=== PATIENT | female | born 1970 | race American Indian/Alaskan Native ===

== ENCOUNTER 2017-03-27 12:53 | Emergency (ER) | payer MEDICARE | END 2017-03-27 19:00 | disposition left against medical advice (07) | LOC: ED 12:53 | DX: R56.9 Unspecified convulsions (principal); Z53.21 Procedure and treatment not carried out due to patient leaving prior to being seen by health care provider ==

== ENCOUNTER 2017-08-27 16:41 | Emergency (ER) | payer MEDICARE ==
[2017-08-27 16:51] VITALS: BP 138/62
--- NOTE | 2017-08-27 19:12 | Emergency Department Report ---
ED Lower Extremity HPI - General Chief Complaint: Extremity Problem,Nontraumatic Stated Complaint: LEG PAIN Time Seen by Provider: 08/27/17 18:54 Source: patient, EMS Mode of arrival: Wheelchair Limitations: No Limitations - History of Present Illness Initial Comments: Pt reports she had surgery on her knee last year and for the past week it has been locking up on her. Denies new trauma. MD Complaint: knee injury -: Gradual, week(s) (1) Injury: Knee: Right Type of Injury: unknown Place: home Severity: mild Improves With: nothing Worsens With: movement Associated Symptoms: swelling, ambulatory. denies: tingling - Related Data Previous Rx's Medication Instructions Recorded Last Taken Type Naproxen [Naprosyn] 500 mg PO BID #20 tablet 08/27/17 Unknown Rx Allergies Allergy/AdvReac Type Severity Reaction Status Date / Time No Known Allergies Allergy Unverified 06/25/14 18:40 ED Review of Systems ROS: Stated complaint: LEG PAIN Other details as noted in HPI Comment: All other systems reviewed and negative Constitutional: denies: chills, fever Eyes: denies: eye pain, eye discharge, vision change ENT: denies: ear pain, throat pain Respiratory: denies: cough, shortness of breath, wheezing Cardiovascular: denies: chest pain, palpitations Endocrine: no symptoms reported Gastrointestinal: denies: abdominal pain, nausea, diarrhea Genitourinary: denies: urgency, dysuria, discharge Musculoskeletal: joint swelling. 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) - Surgical History Past Surgical History?: No - Social History Smoking Status: Current Every Day Smoker Substance Use Type: None - Medications Home Medications: Home Medications Medication Instructions Recorded Confirmed Last Taken Type Naproxen [Naprosyn] 500 mg PO BID #20 tablet 08/27/17 Unknown Rx ED Physical Exam - General Limitations: No Limitations General appearance: alert, in no apparent distress - Head Head exam: Present: atraumatic, normocephalic - Eye Eye exam: Present: normal appearance - ENT ENT exam: Present: mucous membranes moist - Neck Neck exam: Present: normal inspection - Respiratory Respiratory exam: Present: normal lung sounds bilaterally. Absent: respiratory distress - Cardiovascular Cardiovascular Exam: Present: regular rate, normal rhythm. Absent: systolic murmur, diastolic murmur, rubs, gallop - GI/Abdominal GI/Abdominal exam: Present: soft, normal bowel sounds - Extremities Exam Extremities exam: Present: other (FROM R knee, mild swelling, nontender. Hip/ ankle normal. CMS intact. ) - Back Exam Back exam: Present: normal inspection - Neurological Exam Neurological exam: Present: alert, oriented X3 - Psychiatric Psychiatric exam: Present: normal affect, normal mood - Skin Skin exam: Present: warm, dry, intact, normal color. Absent: rash ED Course Vital Signs 08/27/17 16:48 Temperature 98 F Pulse Rate 103 H Respiratory 16 Rate Blood Pressure 138/62 O2 Sat by Pulse 98 Oximetry - Reevaluation(s) Reevaluation #1: 08/27/17 20:14 Pt stable for d/c. ED Lower Extremity MDM - Radiology Data Radiology results: report reviewed chronic changes - Medical Decision Making Pt presents with knee pain x 1 week, xray shows arthritis, evidence of surgery. Will place in immobilizer and refer to ortho. - Differential Diagnosis arthritis, strain/sprain Critical care attestation.: If time is entered above; I have spent that time in minutes in the direct care of this critically ill patient, excluding procedure time. ED Disposition Clinical Impression: Knee pain, acute Qualifiers: Laterality: right Qualified Code(s): M25.561 - Pain in right knee Disposition: DC-01 TO HOME OR SELFCARE Is pt being admited?: No Condition: Good Instructions: Arthralgia (ED) Prescriptions: Naproxen [Naprosyn] 500 mg PO BID #20 tablet Referrals: CLARICE ABREU MD [Primary Care Provider] - 3-5 Days JM YOUNG MD [Staff Physician] - 3-5 Days Time of Disposition: 20:17
--- NOTE | 2017-08-27 19:59 | XRay Report ---
FINAL REPORT PROCEDURE: XR KNEE 3V RT TECHNIQUE: RIGHT knee radiographs, AP, lateral and oblique views. CPT 35676 HISTORY: knee pain COMPARISON: No prior studies are available for comparison. FINDINGS: Fracture (s) and/or Dislocation(s): No acute fracture or dislocation.. Alignment: Normal . Joint space(s): Mild narrowing of the joint spaces. Slight spur formation off of the osseous structures. There has been previous surgery with anchor screws identified within the lateral distal femoral condyle and the lateral tibial plateau.. Soft tissues: Mild soft tissue swelling and slight joint effusion. Bone mineralization: Normal . IMPRESSION: There is no evidence of an acute fracture or dislocation. Moderate arthritis. Previous surgery along the lateral knee..
== END 2017-08-27 20:29 | disposition home or self-care (01) ==
LOC: ED 16:41
DX: M25.561 Pain in right knee (principal); E11.9 Type 2 diabetes mellitus without complications; R56.9 Unspecified convulsions; F17.200 Nicotine dependence, unspecified, uncomplicated
CPT/HCPCS: 99283